=== PATIENT | female | born 1950 | race Caucasian/White ===

== ENCOUNTER 2017-03-12 00:55 | Emergency (ER) | payer OTHER, MEDICARE ==
[2017-03-12 01:15] VITALS: RESP 16; TEMP 97.9
[2017-03-12] MEDS ORDERED: LORazepam 1 MG TAB SL ONE (01:32)
[2017-03-12] MEDS ORDERED: DICYCLOMINE 10 MG CAP PO ONE (01:33)
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
--- NOTE | 2017-03-12 01:38 | CPEKG ---
Heart Rate: 66 RR Interval: 909 P-R Interval: 164 QRSD Interval: 72 QT Interval: 412 QTC Interval: 432 P [place]: 51 QRS [place]: 10 T Wave [place]: 50 EKG Severity - NORMAL ECG - EKG Impression: SINUS RHYTHM Electronically Signed By: Akbar Vega 12-Mar-2017 02:04:19
[2017-03-12] MEDS ORDERED: NS 1,000 ML IV ONE (01:54)
[2017-03-12 01:57] LABS: % IMMATURE GRANULYOCYTES 0.1 % (0.0-1.1); ABSOLUTE IMMATURE GRANULOCYTES 0.01 10^3/uL (0.00-0.10); ADD DIFF? NO; ADD MORPH? NO; ADD SCAN? NO; ATYPICAL LYMPHOCYTE FLAG 10 (0-99); FRAGMENT RBC FLAG 0 (0-99); HEMATOCRIT 38.2 % (38.0-47.0); LEFT SHIFT FLG 0 (0-99); LIPEMIA HEMOLYSIS FLAG 90 (0-99); MEAN CELL HEMOGLOBIN 30.1 pg (27.9-34.1); MEAN CELL VOLUME 88.4 fL (81.5-99.8); MEAN PLATELET VOLUME 9.5 fL (8.7-11.7); PLATELET CLUMPS FLAG 0 (0-99); PLATELET COUNT 311 10^3/uL (150-400); RED BLOOD CELL COUNT 4.32 10^6/uL (4.18-5.33); RED CELL DISTRIBUTION WIDTH 13.1 % (11.5-15.2)
[2017-03-12 02:09] LABS: ANION GAP 13 mEq/L (8-16); CARBON DIOXIDE 23 mEq/l (22-31); CHLORIDE 105 mEq/L (97-110); CREATININE 0.5 mg/dL (0.6-1.0); GLOMERULAR FILTRATION RATE > 60; GLUCOSE 94 mg/dL (70-100); POTASSIUM 3.8 mEq/L (3.5-5.2); SODIUM 141 mEq/L (134-144)
[2017-03-12] MEDS ORDERED: LORAZEPAM 1 MG PREPACK#4 BTL TAKEHOME ONE (03:08)
[2017-03-12 03:13] VITALS: BP 148/85; PULSE 68; O2SAT 95
== END 2017-03-12 03:31 | disposition home or self-care (01) ==
LOC: CED 00:55
DX: R19.7 Diarrhea, unspecified (principal); R10.11 Right upper quadrant pain; R10.31 Right lower quadrant pain
CPT/HCPCS: 80048-PO; 83605-PO; 83690-PO; 85025-PO